=== PATIENT | female | born 1940 | race Caucasian/White ===

== ENCOUNTER 2017-08-23 14:58 | Emergency (ER) | payer OTHER, MEDICARE ==
[~2017-08-23] VITALS: Ht 157.5 cm; Wt 59.0 kg
[~2017-08-23 14:58] MED LIST: ALENDRONATE SOD70 MG PO; ESTRADIOL TD; PROGESTERONE100 MG PO; ULTRAM50 M1 PO
[2017-08-23] MEDS ORDERED: TORADOL PO (16:19)
[2017-08-23] MEDS ORDERED: BACTRIM DS1 TAB PO (16:19)
[2017-08-23 16:25] VITALS: BP 130/80
== END 2017-08-23 16:30 | disposition home or self-care (01) | DRG 603 ==
LOC: ED 14:58
DX: L03.113 Cellulitis of right upper limb (principal); G80.9 Cerebral palsy, unspecified

== ENCOUNTER 2018-05-28 16:22 | Emergency (ER) | payer OTHER, MEDICARE ==
[~2018-05-28] VITALS: Ht 157.5 cm; Wt 45.0 kg
[~2018-05-28 16:22] MED LIST changes: +BACTRIM DS1 TAB PO; +TORADOL PO
[2018-05-28] MEDS ORDERED: ESTRADIOL TD (16:55)
[2018-05-28] MEDS ORDERED: FLEXERIL5 MG PO (18:26)
[2018-05-28 18:31] VITALS: BP 166/74
== END 2018-05-28 18:31 | disposition home or self-care (01) | DRG 556 ==
LOC: ED
DX: M25.552 Pain in left hip (principal); G80.9 Cerebral palsy, unspecified

== ENCOUNTER 2019-01-22 18:42 | Emergency (ER) | payer OTHER, MEDICARE ==
[~2019-01-22] VITALS: Ht 157.5 cm; Wt 43.6 kg
[~2019-01-22 18:42] MED LIST changes: +FLEXERIL5 MG PO
[2019-01-22] MEDS ORDERED: PREDNISONE20 MG PO (20:12)
[2019-01-22] MEDS ORDERED: AMOXICILLIN875 MG PO (20:12)
[2019-01-22] MEDS ORDERED: ROBITUSSIN200 MG/10 PO (20:12)
[2019-01-22 20:40] VITALS: BP 150/85
== END 2019-01-22 20:45 | disposition home or self-care (01) | DRG 153 ==
LOC: ED 18:42
DX: J02.0 Streptococcal pharyngitis (principal); G80.9 Cerebral palsy, unspecified